=== PATIENT | male | born 1940 | race Hispanic/Latino ===

== ENCOUNTER 2017-01-31 12:23 | Emergency (ER) | payer MEDICARE ==
[2017-01-31 13:20] LABS: #Lymphocytes 0.7 thou/uL (1.20-3.40); #Monocytes 0.7 thou/uL (0.11-0.59); #Neutrophils 5.7 thou/uL (1.40-6.50); %Basophils 0.6 % (0.0-1.0); %Eosinophils 0.3 % (0.0-10.0); %Lymphocytes 9.8 % (21.0-51.0); %Monocytes 9.2 % (0.0-10.0); Hematocrit 46.6 % (42.0-52.0); Mean Platelet Volume 7.3 fL (7.4-10.4); Red Blood Cell (RBC) Count 4.76 mill/uL (4.70-6.10); White Blood Cell (WBC) Count 7.1 thou/uL (4.8-10.8)
[2017-01-31 13:30] LABS: Lactic Acid - Sepsis 1.9 mmol/L (0.5-2.2)
[2017-01-31 13:35] LABS: ALT (SGPT) 23 U/L (8-55); AST (SGOT) 25 U/L (5-34); Alkaline Phosphatase 67 U/L (40-150); Anion Gap 14 mmol/L (10-20); BUN (Urea Nitrogen) 11 mg/dL (8.4-25.7); Bilirubin, Total 0.6 mg/dL (0.2-1.2); Calc. Creatinine Clearance 0 mL/min (70-130); Calcium 9.8 mg/dL (7.8-10.44); Carbon Dioxide 27 mmol/L (23-31); Chloride 98 mmol/L (98-107); Estimated GFR-MDRD 90; Globulin 3.6 g/dL (2.4-3.5); Protein, Total 8.2 g/dL (5.8-8.1)
--- NOTE | 2017-01-31 14:50 | RAD ---
PORTABLE CHEST: History: Cough. Dyspnea. FINDINGS: Lungs are clear of infiltrate. Heart and mediastinum unremarkable. Vascular markings normal. Intersti tial markings are mildly prominent in the lung bases which may be chronic. Aortic calcification is no lexx. IMPRESSION: No evidence of acute process. POS: [facility]
--- NOTE | 2017-02-13 15:26 | EKG ---
Test Reason : Blood Pressure : / mmHG Vent. Rate : 075 BPM Atrial Rate : 075 BPM P-R Int : 164 ms QRS Dur : 074 ms QT Int : 376 ms P-R-T Axes : 069 -38 054 degrees QTc Int : 419 ms Sinus rhythm with Premature atrial complexes Left axis deviation Septal infarct , age undetermined Abnormal ECG Confirmed by TAY PORRAS, JENNIFER Fernandes ([id number]), editor [employer] JANET DIALLO ([id number]) on 02/13/2017 3:25:50 PM Referred By: Confirmed By:JENNIFER CROSS MD
== END 2017-01-31 15:51 | disposition home or self-care (01) ==
LOC: ERS 12:23
DX: J44.1 Chronic obstructive pulmonary disease with (acute) exacerbation (principal); J06.9 Acute upper respiratory infection, unspecified; F17.210 Nicotine dependence, cigarettes, uncomplicated
CPT/HCPCS: 36415; 71010; 80053; 83605; 83880; 85025; 87040; 93005; 94640; 94760; 96365; J0696; J7620

== ENCOUNTER 2017-06-30 12:39 | Outpatient (CLI) | payer MEDICARE ==
--- NOTE | 2017-06-30 14:31 | RAD ---
PA AND LATERAL VIEWS CHEST: HISTORY: Dyspnea. FINDINGS: Comparison is made with the exam of 01/31/17. The heart size is normal. The aorta is tortuous. The lungs are expanded without focal areas of cons olidation, pneumothorax, or pleural effusions. Mild chronic changes are again seen. There are mild degenerative changes in the spine. IMPRESSION: No radiographic evidence of acute cardiopulmonary process. POS: [facility]
== END 2017-06-30 12:40 | disposition home or self-care (01) ==
LOC: RAD 12:39
PROVIDERS: ATTEND Internal Medicine
DX: R06.00 Dyspnea, unspecified (principal)
CPT/HCPCS: 71046

== ENCOUNTER 2017-08-10 12:15 | Outpatient (CLI) | payer MEDICARE | END 2017-08-10 12:16 | disposition home or self-care (01) | LOC: CP 12:15 | PROVIDERS: ATTEND Internal Medicine | DX: R06.09 Other forms of dyspnea (principal) | CPT/HCPCS: 94060; 94727; 94729 ==

== ENCOUNTER 2020-04-05 10:59 | Outpatient (CLI) | payer MEDICARE ==
--- NOTE | 2020-04-05 12:53 | CT ---
CT CHEST WITHOUT CONTRAST: Date: 04/05/2020 INDICATION: Low dose screening protocol. Nicotine dependence. Former smoker. FINDINGS: The lung garcia show chronic parenchymal changes. There are emphysematous changes throughout both cyn gs with hyperexpansion and centrilobular emphysema. Interstitial thickening and fibrotic changes are seen throughout both lungs. There is pleural based nodularity in the apical regions, more pronounced posteriorly on the right with pleural based nodularity measuring up to 1.0 cm. There is a pleural based area of parenchymal opacity in the peripheral right upper lobe measuring 1.2 cm thickness x 2.8 cm craniocaudal dimension. No other evidence of pulmonary mass or nodule. The mediastinum is unremarkable. Nonspecific lymph nodes. Atherosclerotic changes in the thoracic aor ta. Images through the upper abdomen are unremarkable. Degenerative spine changes. Vertebral bodies maintain height and alignment. IMPRESSION: Lung-RADS Category 4A. Recommend 3 month follow-up low dose CT chest to confirm stability. POS: [facility]
== END 2020-04-05 11:00 | disposition home or self-care (01) ==
LOC: BICCT 10:59
PROVIDERS: ATTEND Internal Medicine Hematology & Oncology
DX: Z12.2 Encounter for screening for malignant neoplasm of respiratory organs (principal); Z87.891 Personal history of nicotine dependence
CPT/HCPCS: 71271

== ENCOUNTER 2020-07-02 13:54 | Outpatient (CLI) | payer MEDICARE | END 2020-07-02 13:55 | disposition home or self-care (01) | LOC: TBSIIMAG 13:54 | PROVIDERS: ATTEND Urology | DX: C61 Malignant neoplasm of prostate (principal) | CPT/HCPCS: 72197 ==

== ENCOUNTER 2020-07-12 08:28 | Outpatient (CLI) | payer MEDICARE | END 2020-07-12 08:29 | disposition home or self-care (01) | LOC: BICCT 08:28 | PROVIDERS: ATTEND Internal Medicine Hematology & Oncology | DX: R91.1 Solitary pulmonary nodule (principal); D69.59 Other secondary thrombocytopenia; F17.201 Nicotine dependence, unspecified, in remission; I77.810 Thoracic aortic ectasia; J43.9 Emphysema, unspecified; R91.8 Other nonspecific abnormal finding of lung field | CPT/HCPCS: 71250 ==

== ENCOUNTER 2021-12-01 12:18 | Outpatient (CLI) | payer MEDICARE | END 2021-12-01 12:19 | disposition home or self-care (01) | LOC: BICCT 12:18 | PROVIDERS: ATTEND Internal Medicine Hematology & Oncology | DX: Z12.2 Encounter for screening for malignant neoplasm of respiratory organs (principal); C61 Malignant neoplasm of prostate; F17.201 Nicotine dependence, unspecified, in remission; D69.59 Other secondary thrombocytopenia | CPT/HCPCS: 71271 ==

== ENCOUNTER 2022-12-01 12:37 | Outpatient (CLI) | payer MEDICARE | END 2022-12-01 12:38 | disposition home or self-care (01) | LOC: CT 12:37 | PROVIDERS: ATTEND Internal Medicine Hematology & Oncology | DX: Z12.2 Encounter for screening for malignant neoplasm of respiratory organs (principal); Z87.891 Personal history of nicotine dependence; J98.4 Other disorders of lung | CPT/HCPCS: 71271 ==

== ENCOUNTER 2022-12-11 09:30 | Outpatient (CLI) | payer MEDICARE | END 2022-12-11 09:31 | disposition home or self-care (01) | LOC: PET 09:30 | PROVIDERS: ATTEND Internal Medicine Hematology & Oncology | DX: R91.8 Other nonspecific abnormal finding of lung field (principal); C34.11 Malignant neoplasm of upper lobe, right bronchus or lung | CPT/HCPCS: 78815; A9552 ==

== ENCOUNTER 2022-12-17 09:52 | Day surgery (SDC) | payer MEDICARE ==
[2022-12-16 10:58] VITALS: BMI 26.3
[2022-12-17] MEDS ORDERED: Lidocaine 4% PF 5 ML AMP ONE (11:54)
[2022-12-17] MEDS ORDERED: Ipratropium/Albuterol 3 ML NEB ONE (11:57)
[2022-12-17] MEDS ORDERED: fentaNYL PF 100 MCG/2 ML SYRINGE ONE (12:12)
[2022-12-17] MEDS ORDERED: SUGAMMADEX SODIUM 200 MG/2 ML VIAL ONE (12:36)
[2022-12-17] MEDS ORDERED: Oxymetazoline HCl 0.05% (30 ML BOT) ONE (12:51)
[2022-12-17] MEDS ORDERED: Propofol 500 MG/50 ML VIAL ONE (13:00)
[2022-12-17] MEDS ORDERED: Rocuronium Bromide 10 MG/ML (10ML VIAL) ONE (13:14)
[2022-12-17] MEDS ORDERED: Ondansetron PF 4 MG/2 ML Vial ONE (13:14)
[2022-12-17] MEDS ORDERED: Lidocaine 1% PF 5 ML VIAL ONE (13:14)
[2022-12-17] MEDS ORDERED: PHENYLEPHRINE-NS 100 MCG/ML 10 ML SYRINGE ONE (13:14)
[2022-12-17] MEDS ORDERED: PROPOFOL 200 MG/20 ML VIAL ONE (13:14)
[2022-12-17] MEDS ORDERED: ePHEDrine Sulfate 50 MG/10 ML VIAL ONE (13:14)
== END 2022-12-17 16:04 | disposition home or self-care (01) ==
LOC: SDC 09:52
PROVIDERS: ATTEND Internal Medicine
PROC: 0B9G8ZX Drainage of Left Upper Lung Lobe, Via Natural or Artificial Opening Endoscopic, Diagnostic (ICD-10-PCS; principal; 2022-12-17)
PROC: 0BB48ZX Excision of Right Upper Lobe Bronchus, Via Natural or Artificial Opening Endoscopic, Diagnostic (ICD-10-PCS; 2022-12-17)
PROC: 07B74ZX Excision of Thorax Lymphatic, Percutaneous Endoscopic Approach, Diagnostic (ICD-10-PCS; 2022-12-17)
DX: R91.8 Other nonspecific abnormal finding of lung field (principal); R59.0 Localized enlarged lymph nodes; J44.9 Chronic obstructive pulmonary disease, unspecified; Z90.49 Acquired absence of other specified parts of digestive tract; Z87.891 Personal history of nicotine dependence
CPT/HCPCS: 88112; 88172; 88173; 88177; 88305; J2405; J2704; J7611; J7620

== ENCOUNTER 2023-01-05 09:17 | Outpatient (CLI) | payer MEDICARE | END 2023-01-05 09:18 | disposition home or self-care (01) | LOC: SCSMRI 09:17 | PROVIDERS: ATTEND Internal Medicine Hematology & Oncology | DX: C34.11 Malignant neoplasm of upper lobe, right bronchus or lung (principal) | CPT/HCPCS: 70553 ==

== ENCOUNTER 2023-01-13 05:39 | Day surgery (SDC) | payer MEDICARE ==
[2023-01-11 14:16] VITALS: BMI 26.1
[2023-01-13] MEDS ORDERED: Lidocaine 2% PF 5 ML VIAL ONE (06:13)
[2023-01-13] MEDS ORDERED: Bupivacaine PF 0.5% 30 ML VIAL ONE (06:13)
[2023-01-13] MEDS ORDERED: EPINEPHrine 1 MG/ML VIAL ONE (06:13)
[2023-01-13] MEDS ORDERED: PHENYLEPHRINE-NS 100 MCG/ML 10 ML SYRINGE ONE ×2 (06:31→07:11)
[2023-01-13] MEDS ORDERED: Ondansetron PF 4 MG/2 ML Vial ONE ×2 (06:31→07:11)
[2023-01-13] MEDS ORDERED: PROPOFOL 20 ML ONE (06:31)
[2023-01-13] MEDS ORDERED: Dexamethasone 4 mg/ml Vial ONE (06:31)
[2023-01-13] MEDS ORDERED: Lidocaine 2% PF 100 mg/5 ml Syringe ONE (06:31)
[2023-01-13] MEDS ORDERED: ePHEDrine Sulfate 50 MG/10 ML VIAL ONE ×2 (06:31→07:11)
[2023-01-13] MEDS ORDERED: fentaNYL PF 100 MCG/2 ML SYRINGE ONE (06:31)
[2023-01-13] MEDS ORDERED: Rocuronium Bromide 10 MG/ML (10ML VIAL) ONE ×2 (06:31→07:11)
[2023-01-13] MEDS ORDERED: SUGAMMADEX SODIUM 200 MG/2 ML VIAL ONE (06:32)
[2023-01-13] MEDS ORDERED: Midazolam HCl 2 mg/2 ml Vial ONE (06:32)
[2023-01-13] MEDS ORDERED: CEFAZOLIN 2 GM VIAL ONE (06:54)
[2023-01-13] MEDS ORDERED: Sodium Chloride 0.9% 100 ML ONE (06:54)
[2023-01-13] MEDS ORDERED: PROPOFOL 200 MG/20 ML VIAL ONE (07:11)
[2023-01-13] MEDS ORDERED: Dexamethasone 20 MG/5 ML VIAL ONE (07:11)
[2023-01-13] MEDS ORDERED: Lidocaine 1% PF 5 ML VIAL ONE (07:11)
[2023-01-13] MEDS ORDERED: Famotidine/PF 20 mg/2ml Vial ONE (07:24)
== END 2023-01-13 11:00 | disposition home or self-care (01) ==
LOC: SDC 05:39
PROVIDERS: ATTEND Student in an Organized Health Care Education/Training Program
PROC: 07B23ZX Excision of Left Neck Lymphatic, Percutaneous Approach, Diagnostic (ICD-10-PCS; principal; 2023-01-13)
PROC: 0JH60WZ Insertion of Totally Implantable Vascular Access Device into Chest Subcutaneous Tissue and Fascia, Open Approach (ICD-10-PCS; 2023-01-13)
DX: C34.11 Malignant neoplasm of upper lobe, right bronchus or lung (principal); C77.0 Secondary and unspecified malignant neoplasm of lymph nodes of head, face and neck; R59.0 Localized enlarged lymph nodes; F41.9 Anxiety disorder, unspecified; R91.8 Other nonspecific abnormal finding of lung field; E78.00 Pure hypercholesterolemia, unspecified; H21.9 Unspecified disorder of iris and ciliary body; Z79.899 Other long term (current) drug therapy; Z98.890 Other specified postprocedural states
CPT/HCPCS: 36561; 39402; 71045; 86850; 86900; 86901; C1713; C1788; J0171; 88184; 88185; 88307; 88341; 88342; J1100; J1642; J2001; J2250; J2405; J2704; J3490; S0020; S0028

== ENCOUNTER 2023-01-27 12:33 | Outpatient (CLI) | payer MEDICARE | END 2023-01-27 12:34 | disposition home or self-care (01) | LOC: RAD 12:33 | PROVIDERS: ATTEND Student in an Organized Health Care Education/Training Program | DX: R91.8 Other nonspecific abnormal finding of lung field (principal); J84.9 Interstitial pulmonary disease, unspecified | CPT/HCPCS: 71046 ==

== ENCOUNTER 2023-03-30 08:22 | Outpatient (CLI) | payer MEDICARE ==
[2023-03-30] MEDS ORDERED: Iopamidol 370 76% 100 ML VIAL ONE (10:27)
== END 2023-03-30 08:23 | disposition home or self-care (01) ==
LOC: CT 08:22
PROVIDERS: ATTEND Internal Medicine Hematology & Oncology
DX: C34.90 Malignant neoplasm of unspecified part of unspecified bronchus or lung (principal); J44.9 Chronic obstructive pulmonary disease, unspecified; R91.8 Other nonspecific abnormal finding of lung field; J98.4 Other disorders of lung
CPT/HCPCS: 71260; J1642

== ENCOUNTER 2023-07-06 10:52 | Outpatient (CLI) | payer MEDICARE ==
[2023-07-06] MEDS ORDERED: Iopamidol 370 76% 100 ML VIAL ONE (11:21)
== END 2023-07-06 10:53 | disposition home or self-care (01) ==
LOC: BICCT 10:52
PROVIDERS: ATTEND Internal Medicine Hematology & Oncology
DX: C34.11 Malignant neoplasm of upper lobe, right bronchus or lung (principal); J98.59 Other diseases of mediastinum, not elsewhere classified
CPT/HCPCS: 71260; Q9967

== ENCOUNTER 2023-07-22 11:00 | Outpatient (CLI) | payer MEDICARE | END 2023-07-22 11:01 | disposition home or self-care (01) | LOC: PET 11:00 | PROVIDERS: ATTEND Internal Medicine Hematology & Oncology | DX: C34.11 Malignant neoplasm of upper lobe, right bronchus or lung (principal); J92.9 Pleural plaque without asbestos | CPT/HCPCS: 78815; A9552 ==

== ENCOUNTER → 2023-12-21 | Outpatient (CLI) | payer MEDICARE | LOC: PET 09:30 | PROVIDERS: ATTEND Internal Medicine Hematology & Oncology | DX: C34.11 Malignant neoplasm of upper lobe, right bronchus or lung (principal) | CPT/HCPCS: 78815; A9552 ==